=== PATIENT | male | born 1975 | race Caucasian/White ===

== ENCOUNTER 2017-08-22 23:07 | Emergency (ER) | payer MEDICAID ==
[~2017-08-22] VITALS: Ht 177.8 cm; Wt 74.8 kg
[2017-08-22 23:45] VITALS: BP 109/67
[2017-08-23] MEDS ORDERED: PENICILLIN G BENZ 1200000 UNITS/2 ML SYRG IM ONE
== END 2017-08-23 00:41 | disposition home or self-care (01) ==
LOC: ER 23:16
DX: B01.89 Other varicella complications (principal)
CPT/HCPCS: 96372; 99283; J0561

== ENCOUNTER 2018-03-26 08:35 | Emergency (ER) | payer MEDICAID ==
[~2018-03-26] VITALS: Ht 177.8 cm; Wt 77.1 kg
[2018-03-26 08:42] VITALS: BP 102/70
== END 2018-03-26 09:22 | disposition home or self-care (01) ==
LOC: ER 08:35
DX: R55 Syncope and collapse (principal); F41.9 Anxiety disorder, unspecified; F17.210 Nicotine dependence, cigarettes, uncomplicated

== ENCOUNTER 2021-12-15 23:31 | Emergency (ER) | payer MEDICAID ==
[~2021-12-15] VITALS: Ht 180.3 cm; Wt 72.6 kg
[2021-12-15 23:32] VITALS: BP 148/92
[2021-12-16] MEDS ORDERED: KETOROLAC TROMETH 60MG/2ML VIAL IM ONE (01:30)
[2021-12-16] MEDS ORDERED: AMOX250C3 PO (01:36)
[2021-12-16] MEDS ORDERED: HYDR-4798 PO (01:36)
== END 2021-12-16 01:54 | disposition home or self-care (01) ==
LOC: ER 23:31
DX: K02.9 Dental caries, unspecified (principal); K04.7 Periapical abscess without sinus; F17.210 Nicotine dependence, cigarettes, uncomplicated
CPT/HCPCS: 96372; 99283; J1885

== ENCOUNTER 2022-06-15 13:37 | Emergency (ER) | payer MEDICAID ==
[~2022-06-15] VITALS: Ht 177.8 cm; Wt 63.9 kg
[~2022-06-15 13:37] MED LIST: AMOX250C3 PO; HYDR-4798 PO
[2022-06-15 14:06] VITALS: BP 114/76
== END 2022-06-15 20:21 | disposition left against medical advice (07) ==
LOC: ER 13:37
DX: K08.89 Other specified disorders of teeth and supporting structures (principal); Z53.21 Procedure and treatment not carried out due to patient leaving prior to being seen by health care provider